=== PATIENT | female | born 1985 | race Caucasian/White ===

== ENCOUNTER 2020-07-18 13:22 | Inpatient (IN) | payer OTHER, SELFPAY ==
[2020-06-15 15:12] VITALS: BMI 32.1
[2020-07-18] VITALS (69 sets, daily range): BP systolic 104–146; BP diastolic 68–104; PULSE 64–93; TEMP 36.6; O2SAT 96–100
--- NOTE | 2020-07-18 13:43 | LDADM ---
This patient, Nona Stern, was admitted to Labor/Delivery/Recovery 103 on 07/18/20 at 13:22. Plans for labor, pain management and were discussed with patient. Patient/family oriented to hospital policies and general routines including ID bracelet, bed and alarms, visiting hours, pain management, procedures, bathroom and other care routines, personal items, smoking policy, room service/diet and guest tray routines, infant security routines, and visiting hours. Patient/Family are encouraged to report perceived risks to care and to ask questions if they do not understand what they are told or what they should do. See OBIX for further documentation.
[2020-07-18] MEDS: LACTATED RINGERS 1,000 ML 125 ML IV CONT ×2 (13:51→19:16)
[2020-07-18] MEDS: OXYTOCIN 30 UNITS/NS 500 ML 30 UNITS/500 ML BAG IV CONT (13:51)
[2020-07-18 14:01] LABS: Basophils Percent Auto 0.1 % (0.2-1.2); Eosinophils Absolute Auto 0.4 K/mm3 (0-0.3); Eosinophils Percent Auto 3.5 % (0-4.4); Hematocrit 36.7 % (37.0-47.0); Hemoglobin 12.5 g/dL (12.0-15.0); Immature Granulocyte Absolute 0.09 K/mm3 (0.00-0.031); Immature Granulocyte Percent A 0.8 % (0-0.5); Lymphocytes Absolute Auto 1.49 K/mm3 (0.9-3.2); Lymphocytes Percent Auto 12.9 % (18.3-44.2); Mean Corpuscular HGB Conc 34.1 g/dl (32-36); Mean Corpuscular Hemoglobin 30.6 pg (26-34); Mean Platelet Volume 9.6 fl (7.4-10.4); Monocytes Absolute Auto 1.1 K/mm3 (0.1-0.6); Monocytes Percent Auto 9.6 % (2.6-8.5); Neutrophils Absolute Auto 8.5 K/mm3 (1.3-6.7); Neutrophils Percent Auto 73.1 % (45.5-73.1); Platelet Count Result 251 k/mm3 (150-375); Red Blood Count 4.08 M/mm3 (4.2-5.4); Red Cell Distribution Width 13.2 % (11.5-14.5); White Blood Count 11.6 K/mm3 (4.5-10.0)
[2020-07-18 16:31] LABS: Barbiturate Screen Urine Negative (Negative); Benzodiazepines Screen Urine Negative (Negative)
[2020-07-18 16:32] LABS: Amphetamine Screen Urine Negative (Negative); Cannabinoid Screen Urine Positive (Negative); Cocaine Screen Urine Negative (Negative); Methadone Screen Urine Negative (Negative); Opiate Screen Urine Negative (Negative); Phencyclidine Screen Urine Negative (Negative)
--- NOTE | 2020-07-18 18:33 | PM.IMHP ---
H&P: HPI History of Present Illness Date/Time: 07/18/20 18:33 Chief complaint: Induction of Labor Narrative: Nona Stern is a 34 year old female [facility] Family History Family History (Updated 06/15/20 @ 15:23 by Lidia Cho, RN) Grandparent Asthma Mother Asthma Colon cancer Social History Social History Smoking status: Former smoker Substance use: never Gender identity (if verbalized by the patient): Female Spiritual care concerns: No Meds Home Medications and Allergies Home Medications Medication Instructions Recorded Confirmed Type PNV cmb#95-ferrous fumarate-FA 1 tablet PO DAILY 06/15/20 07/18/20 History [] albuterol sulfate 2 puff INHALATION PRN PRN 06/15/20 07/18/20 History Allergies Allergy/AdvReac Type Severity Reaction Status Date / Time Penicillins Allergy Intermediate UNKNOWN Verified 02/16/18 22:55 Vital Signs Vital Signs - 24 hr 07/18/20 13:45 07/18/20 14:01 07/18/20 14:15 Temperature Pulse Rate 81 76 86 Blood Pressure 133/89 116/77 123/79 07/18/20 14:30 07/18/20 14:45 07/18/20 15:00 Temperature 36.6 C Pulse Rate 73 73 78 Blood Pressure 128/81 132/84 124/84 07/18/20 15:15 07/18/20 15:30 07/18/20 16:00 Temperature Pulse Rate 74 71 75 Blood Pressure 128/78 127/84 132/82 07/18/20 16:15 07/18/20 16:30 07/18/20 16:45 Temperature Pulse Rate 72 71 72 Blood Pressure 128/81 131/88 133/81 07/18/20 17:00 07/18/20 17:15 07/18/20 17:30 Temperature Pulse Rate 75 78 76 Blood Pressure 134/90 129/81 131/76 07/18/20 17:45 07/18/20 18:22 07/18/20 18:30 Temperature Pulse Rate 75 78 81 Blood Pressure 123/76 127/74 142/96 H H&P: Results Labs Labs: Short CBC 07/18/20 Range/Units 13:46 WBC 11.6 H (4.5-10.0) K/mm3 Hgb 12.5 (12.0-15.0) g/dL Hct 36.7 L (37.0-47.0) % Plt Count 251 (150-375) k/mm3 Assessment and Plan Assessment and plan (1) Post-term , 40-42 weeks of gestation: Code(s): O48.0 - Post-term Status: Acute (2) Decreased movement: Code(s): O36.8190 - Decreased movements, unspecified trimester, not applicable or unspecified Status: Acute
--- NOTE | 2020-07-18 18:34 | P.HP_ITS ---
Obstetrics - Admit Note Admission Note: record reviewed. No pertinent additions to the history and/or any subsequent changes in the physical findings that are not consistent with the expected course of the were found. pt in office today with decreased movement at term gestation, plan induction of labor, sve 3/-2 , arom moderate amount of clear odorless fluid Additions to the history and/or subsequent changes in the physical findings follow. None.
--- NOTE | 2020-07-18 18:53 | WPDANESEPPF ---
Anes - Initial Pre Proc Eval Procedure: labor epidural Date/Time: 07/18/20 18:53 Surgeon: Luz Grace MD Pre Op Diagnosis: labor pain Pre Op Diagnosis: Induction of Labor Patient Data Age: 34 Gender: F Height: 1.63 m Weight: 85 kg Last Vital Signs Temp 36.6 C 07/18/20 15:00 Pulse 74 07/18/20 18:50 BP 141/90 H 07/18/20 18:50 Pulse Ox 99 07/18/20 18:49 Allergies Allergy/AdvReac Type Severity Reaction Status Date / Time Penicillins Allergy Intermediate UNKNOWN Verified 02/16/18 22:55 Home Medications Medication Instructions Recorded Confirmed Type PNV cmb#95-ferrous fumarate-FA 1 tablet PO DAILY 06/15/20 07/18/20 History [] albuterol sulfate 2 puff INHALATION PRN PRN 06/15/20 07/18/20 History Laboratory Tests 07/18/20 07/18/20 07/18/20 13:46 13:46 13:46 WBC 11.6 K/mm3 H K/mm3 (4.5-10.0) RBC 4.08 M/mm3 L M/mm3 (4.2-5.4) Hgb 12.5 g/dL g/dL (12.0-15.0) Hct 36.7 % L % (37.0-47.0) MCV 90.0 fl fl (80-100) MCH 30.6 pg pg (26-34) MCHC 34.1 g/dl g/dl (32-36) RDW 13.2 % % (11.5-14.5) Plt Count 251 k/mm3 k/mm3 (150-375) MPV 9.6 fl fl (7.4-10.4) Immature Gran % (Auto) 0.8 % H % (0-0.5) Neut % (Auto) 73.1 % % (45.5-73.1) Lymph % (Auto) 12.9 % L % (18.3-44.2) [place] % (Auto) 9.6 % H % (2.6-8.5) Eos % (Auto) 3.5 % % (0-4.4) Baso % (Auto) 0.1 % L % (0.2-1.2) Lymph # (Auto) 1.49 K/mm3 K/mm3 (0.9-3.2) [place] # (Auto) 1.1 K/mm3 H K/mm3 (0.1-0.6) Eos # (Auto) 0.4 K/mm3 H K/mm3 (0-0.3) Baso # (Auto) 0.0 K/mm3 K/mm3 (0.0-0.1) Abs Immat Gran (auto) 0.09 K/mm3 H K/mm3 (0.00-0.031) Absolute Neuts (auto) 8.5 K/mm3 H K/mm3 (1.3-6.7) Absolute Nucleated RBC 0.0 K/mm3 K/mm3 (0.0-0.012) Nucleated RBC % 0.0 % % (0.0-0.2) Urine Opiates Screen Urine Methadone Screen Ur Barbiturates Screen Ur Phencyclidine Scrn Ur Amphetamine Screen U Benzodiazepines Scrn Urine Cocaine Screen U Cannabinoids Screen RPR Pending Blood Type O Positive Antibody Screen Negative 07/18/20 15:59 WBC RBC Hgb Hct MCV MCH MCHC RDW Plt Count MPV Immature Gran % (Auto) Neut % (Auto) Lymph % (Auto) [place] % (Auto) Eos % (Auto) Baso % (Auto) Lymph # (Auto) [place] # (Auto) Eos # (Auto) Baso # (Auto) Abs Immat Gran (auto) Absolute Neuts (auto) Absolute Nucleated RBC Nucleated RBC % Urine Opiates Screen Negative (Negative) Urine Methadone Screen Negative (Negative) Ur Barbiturates Screen Negative (Negative) Ur Phencyclidine Scrn Negative (Negative) Ur Amphetamine Screen Negative (Negative) U Benzodiazepines Scrn Negative (Negative) Urine Cocaine Screen Negative (Negative) U Cannabinoids Screen Positive A (Negative) RPR Blood Type Antibody Screen Patient hx anesthesia problems: none Family hx anesthesia problems: none [facility] Past Medical History Medical History (Updated 07/18/20 @ 18:53 by Jenaro Da Silva DO) Asthma Family History Family History (Updated 06/15/20 @ 15:23 by Lidia Cho RN) Grandparent Asthma Mother Asthma Colon cancer Social History Social History Smoking status: Former smoker Substance use: never Gender identity (if verbalized by the patient): Female Spiritual care concerns: No Anes - Eval Final PreProcedure Day of Procedure 07/18/20 18:53 Patient weight: obese ASA classification: III Anesthesia type and monitoring: regional epidur
--- NOTE | 2020-07-18 21:34 | PM.OBPRVD ---
OB - Delivery Note Procedure Delivery date: 07/18/20 Procedure: Vaginal delivery. Intrapartal events: Extended Bradycardia Induction method: AROM and per pitocin protocol Delivery monitor: external FHT and external uterine Route of delivery: Episiotomy description: None Laceration Description: None Specimen: No Estimated blood loss (mL): 50 Anesthesia type: Epidural Disposition: other () [place] Baby Date of : 07/18/20 Time of : 21:21 Weeks of gestation at delivery: 40 Infant gender: Male Weight (pounds): 7 Weight (ounces): 11 presentation: vertex position: Right Occiput Anterior Placenta delivery description: Spontaneous cord vessel description: 3 Vessels, Nuchal Cord (x1), Reduced, Clamped/Cut, Around Body x2 and Delayed Cord Clamping score one minute: 9 score five minutes: 9 Narrative: Mom and baby skin to skin and in stable condition.
[2020-07-18] MEDS: OXYTOCIN 30 UNITS/NS 500 ML 30 UNITS/500 ML BAG 125 UNITS IV CONT (21:54)
[2020-07-19 00:42] VITALS: BP 123/73; PULSE 79
--- NOTE | 2020-07-19 01:28 | OBPPTRN ---
Patient transferred to post room #290 via wheelchair with in crib. Support person present. Oriented to unit, room, information board, rooming in, admission packet and security measures. Patient verbalizes understanding.
[2020-07-19 01:40] VITALS: BP 131/80; PULSE 76; RESP 16; TEMP 37.1
[2020-07-19 06:01] LABS: Hematocrit 32.9 % (37.0-47.0); Hemoglobin 11.2 g/dL (12.0-15.0)
[2020-07-19 06:40] VITALS: BP 121/63; PULSE 59; RESP 18; TEMP 37
--- NOTE | 2020-07-19 07:58 | P.PNOB_ITS ---
OB - PN: Subj Subjective Date/time seen: 07/19/20 07:58 Patient comments: no complaints baby status: doing well OB - PN: Obj Data Labs CBC & Chem 7: 07/19/20 04:38 Labs: Laboratory Results - last 24 hr 07/18/20 07/18/20 07/18/20 13:46 13:46 15:59 WBC 11.6 H RBC 4.08 L Hgb 12.5 Hct 36.7 L MCV 90.0 MCH 30.6 MCHC 34.1 RDW 13.2 Plt Count 251 MPV 9.6 Immature Gran % (Auto) 0.8 H Neut % (Auto) 73.1 Lymph % (Auto) 12.9 L [place] % (Auto) 9.6 H Eos % (Auto) 3.5 Baso % (Auto) 0.1 L Lymph # (Auto) 1.49 [place] # (Auto) 1.1 H Eos # (Auto) 0.4 H Baso # (Auto) 0.0 Abs Immat Gran (auto) 0.09 H Absolute Neuts (auto) 8.5 H Absolute Nucleated RBC 0.0 Nucleated RBC % 0.0 Urine Opiates Screen Negative Urine Methadone Screen Negative Ur Barbiturates Screen Negative Ur Phencyclidine Scrn Negative Ur Amphetamine Screen Negative U Benzodiazepines Scrn Negative Urine Cocaine Screen Negative U Cannabinoids Screen Positive A Blood Type O Positive Antibody Screen Negative 07/19/20 04:38 WBC RBC Hgb 11.2 L Hct 32.9 L MCV MCH MCHC RDW Plt Count MPV Immature Gran % (Auto) Neut % (Auto) Lymph % (Auto) [place] % (Auto) Eos % (Auto) Baso % (Auto) Lymph # (Auto) [place] # (Auto) Eos # (Auto) Baso # (Auto) Abs Immat Gran (auto) Absolute Neuts (auto) Absolute Nucleated RBC Nucleated RBC % Urine Opiates Screen Urine Methadone Screen Ur Barbiturates Screen Ur Phencyclidine Scrn Ur Amphetamine Screen U Benzodiazepines Scrn Urine Cocaine Screen U Cannabinoids Screen Blood Type Antibody Screen OB - PN A/P Plan day: 1 Plan: routine care Time Spent With Patient Time: Total time spent is greater than 50% in coordination of care (as documented) at patient's floor/unit and/or counseling patient: Time with patient: less than 15 minutes Review of Systems Review of Systems: All systems reviewed & are unremarkable except as noted in HPI and below Exam Narrative: Exam Narrative: Fundus firm and vaginal flow controlled. No lower ext redness, warmth, or edema. Negative homans. Denies h/a, v/d or e/p. Reflexes normal. Const: General: comfortable Chest: Breast/axilla inspection: normal inspection of the breasts Resp: Effort & Inspection: normal respiratory effort Cardio: Rate: regular rate GI: GI Palp: Yes Soft to palpation Psych: Appearance: grossly normal Affect: normal affect Attitude: cooperative Thought content: Yes Normal thought content present Judgement: Good judgement present (Psych)
[2020-07-19 08:52] LABS: Rapid Plasma Reagin Non-Reactive (NonReactive)
[2020-07-19] MEDS: MULTIVIT/MIN/PREN/FOL AC/IRON TABLET 1 TAB PO (09:02)
[2020-07-19] MEDS: IBUPROFEN 600 MG TABLET PO (09:02)
[2020-07-19] MEDS: TETANUS,DIPHTHERIA,AC PERTUSSIS ADULT (0.5 ML) BOOSTRIX IM (10:40)
[2020-07-19 22:00] VITALS: BP 121/72; PULSE 77; RESP 16; TEMP 36.7; O2SAT 100
[2020-07-20 07:05] VITALS: BP 134/90; PULSE 79; RESP 16; TEMP 36.9
[2020-07-20] MEDS: IBUPROFEN 600 MG TABLET PO (07:36)
[2020-07-20] MEDS: MULTIVIT/MIN/PREN/FOL AC/IRON TABLET 1 TAB PO (07:36)
[2020-07-20] MEDS: DOCUSATE SODIUM 100 MG CAPSULE PO (07:36)
[2020-07-20] MEDS: LANOLIN (LANSINOH) 7.5 GM CREAM 1 APPLIC TOPICAL (07:38)
--- NOTE | 2020-07-20 08:10 | PM.OBPNVD ---
OB - PN: Subj Subjective Date/time seen: 07/20/20 08:10 Patient comments: no complaints baby status: doing well OB - PN: Obj Data Labs CBC & Chem 7: 07/19/20 04:38 Labs: Laboratory Results - last 24 hr 07/18/20 13:46 RPR Non-reactive OB - PN A/P Plan day: 2 Plan: routine care and discharge home (F/U in 1 week for bp check) Time Spent With Patient Time: Total time spent is greater than 50% in coordination of care (as documented) at patient's floor/unit and/or counseling patient: PIH precautions discussed in detail. Time with patient: less than 15 minutes Review of Systems Review of Systems: All systems reviewed & are unremarkable except as noted in HPI and below Exam Narrative: Exam Narrative: Fundus firm and vaginal flow controlled. No lower ext redness, warmth, or edema. Negative homans. Denies h/a, v/d or e/p. Reflexes normal. Const: General: comfortable Chest: Breast/axilla inspection: normal inspection of the breasts Resp: Effort & Inspection: normal respiratory effort Cardio: Rate: regular rate GI: GI Palp: Yes Soft to palpation Psych: Appearance: grossly normal Affect: normal affect Attitude: cooperative Thought content: Yes Normal thought content present Judgement: Good judgement present (Psych)
--- NOTE | 2020-07-20 08:12 | P.DS_ITS ---
DS: Admitting Diagnosis Admitting Diagnosis Admitting Diagnosis: Induction of Labor DS: Discharge Diagnosis Discharge Diagnosis (1) Vaginal delivery: Code(s): O80 - Encounter for full-term uncomplicated delivery Status: Acute OB - DS: Summary OB Procedures : None OB Procedures Intrapartum: Spontaneous Vag Delivery OB Procedures: : None Time Spent with Patient Time attestation: Total time spent providing and/or coordinating discharge services: Time spent: Less than 30 minutes DS: Data Data Completed and Pending Labs on day of discharge: Labs from last 24 hours 07/18/20 13:46 RPR Non-reactive Discharge Plan Discharge Attending physician on discharge: Mirlande Prabhakar Discharging Clinician: Betzaida Arreola Patient Disposition: Home, Self-Care Activity: pelvic rest Diet: as tolerated Patient Instructions: Antibiotic Form Stand Alone Forms: General Discharge Information Follow-up/Referrals: Mirlande Prabhakar, CNM [Certified Nurse Controlled Area Checker] - Discharge Medications: Continued albuterol sulfate 90 mcg/actuation Hfa Aerosol Inhaler 2 puff INHALATION PRN PRN (Reason: Shortness Of Breath) RF: 0 PNV cmb#95-ferrous fumarate-FA [] 28 mg iron- 800 mcg Tablet 1 tablet PO DAILY RF: 0 Date of admission: 07/18/20 13:22 Primary Care Provider: PHYSICIAN,SUPERVISOR LABOR GANG Admitting Provider: Luz Grace Attending physician on admission: Luz Grace Condition: Stable
[2020-07-21 11:27] VITALS: BP 151/96; PULSE 96; RESP 20; TEMP 36.9; O2SAT 99
== END 2020-07-20 13:50 | disposition home or self-care (01) | DRG 807 ==
LOC: ANHLDR 13:26 → ANHOB2 07-19 01:45
PROVIDERS: Advanced Practice Midwife; Admitting Provider Obstetrics & Gynecology; Visit Provider Obstetrics & Gynecology
DX: O48.0 Post-term pregnancy (principal); Z37.0 Single live birth; Z3A.40 40 weeks gestation of pregnancy; O36.8330 Maternal care for abnormalities of the fetal heart rate or rhythm, third trimester, not applicable or unspecified; O69.82X0 Labor and delivery complicated by other cord entanglement, without compression, not applicable or unspecified; O99.52 Diseases of the respiratory system complicating childbirth; J45.909 Unspecified asthma, uncomplicated; O99.214 Obesity complicating childbirth; E66.9 Obesity, unspecified
CPT/HCPCS: 36415; 80307; 85014; 85018; 85025; 86592; 86850; 86900; 86901; 90715; A9270; J2590; J2795; J7120

== ENCOUNTER → 2020-10-18 11:12 | Outpatient (CLI) | payer OTHER, MEDICAID, SELFPAY ==
--- NOTE | ~2020-10-18 | XR_ITS ---
EXAMINATION: XR knee RT min 4V DATE: 10/18/2020 11:50 INDICATION: Back pain. TECHNIQUE: 4 views of right knee were obtained. COMPARISON: None. FINDINGS: Bone alignment is normal. No fracture. There is mild tricompartmental osteoarthritis charac terized by tiny marginal osteophytes. No knee joint effusion. IMPRESSION: 1. Mild right knee osteoarthritis. Reviewed, dictated and finalized at location A. CAL COLLECTOR
--- NOTE | ~2020-10-18 | XR_ITS ---
XR lumbar spine 2-3V DATE: 10/18/2020 11:50 INDICATION: Back pain. No injury. TECHNIQUE: AP, lateral, coned lateral lumbosacral views COMPARISON: None FINDINGS: Minimal dextroscoliosis of the lumbar spine. No fracture or bone destruction. The lumbar pedicles are intact. Lumbar and lumbosacral interspaces are well preserved. Normal sacroiliac joints. IMPRESSION: Minimal dextroscoliosis; otherwise negative Reviewed, dictated and finalized at location A. SHOVEL OPERATOR
--- NOTE | ~2020-10-18 | XR_ITS ---
EXAMINATION: XR knee LT min 4V DATE: 10/18/2020 11:50 INDICATION: Back pain. TECHNIQUE: 4 views of left knee were obtained. COMPARISON: None. FINDINGS: Bone alignment is normal. No fracture. There is mild tricompartmental osteoarthritis charac terized by tiny marginal osteophytes. No knee joint effusion. IMPRESSION: 1. Mild left knee osteoarthritis. Reviewed, dictated and finalized at location A. T FARMER
== END ==
PROVIDERS: PCP Family Medicine; Visit Provider Physician Assistant Medical
DX: M54.5 Low back pain (principal); M25.562 Pain in left knee; M25.561 Pain in right knee; M41.86 Other forms of scoliosis, lumbar region; M17.0 Bilateral primary osteoarthritis of knee
CPT/HCPCS: 72100; 73564

== ENCOUNTER → 2020-10-27 07:38 | Outpatient (CLI) | payer OTHER, MEDICAID, SELFPAY ==
--- NOTE | ~2020-10-27 | MR_ITS ---
EXAMINATION: MR lumbar spine wo con DATE: 10/27/2020 08:24 INDICATION: Low back pain. TECHNIQUE: Magnetic resonance imaging (MRI) of the lumbar spine was performed without intravenous con trast. Sequences included sagittal T2-weighted FSE, sagittal T2-weighted FS FSE, sagittal T1-weighted FSE, and axial T2-weighted FSE. COMPARISON: Lumbar spine radiographs 10/18/2020 FINDINGS: There is 5 degrees dextrocurvature of lumbar spine. Vertebral body heights and intervertebr al disc heights are normal. The distal spinal cord signal intensity is normal. The conus medullaris i s at T12-L1. The following disc levels are specifically discussed: L1-L2: The disc does not extend beyond the endplate margin. There is mild bilateral facet joint osteo arthritis. There is no neural foraminal stenosis. There is no central canal stenosis. L2-L3: The disc does not extend beyond the endplate margin. There is mild right facet joint osteoarth ritis. There is no neural foraminal stenosis. There is no central canal stenosis. L3-L4: The disc does not extend beyond the endplate margin. There is mild right facet joint osteoarth ritis. There is no neural foraminal stenosis. There is no central canal stenosis. L4-L5: The disc does not extend beyond the endplate margin. There is mild bilateral facet joint osteo arthritis. There is no neural foraminal stenosis. There is no central canal stenosis. L5-S1: There is a central protrusion. There is mild bilateral facet joint osteoarthritis. There is no neural foraminal stenosis. There is no central canal stenosis. IMPRESSION: 1. Mild lumbar spondylosis. Reviewed, dictated and finalized at location A. MENTAL BRONZE WORKER IMPRESSION: 1. Mild lumbar spondylosis.
== END ==
PROVIDERS: PCP Family Medicine; Visit Provider Physician Assistant Medical
DX: M47.896 Other spondylosis, lumbar region (principal)
CPT/HCPCS: 72148

== ENCOUNTER 2023-01-14 09:23 | Outpatient (CLI) | payer OTHER, MEDICAID, SELFPAY ==
[2023-01-14 09:35] LABS: Kit Draw Collected
== END 2023-01-14 09:24 | disposition home or self-care (01) ==
LOC: ANHGOSHLAB 09:25
PROVIDERS: PCP Family Medicine; Visit Provider Physician Assistant
DX: R42 Dizziness and giddiness (principal); R55 Syncope and collapse
CPT/HCPCS: 36415

== ENCOUNTER 2024-10-05 06:27 | Emergency (ER) | payer BC, SELFPAY ==
[2024-10-05] VITALS (7 sets, daily range): BP systolic 121–137; BP diastolic 75–84; PULSE 99–115; RESP 14–24; TEMP 37.4; O2SAT 96–97
--- NOTE | ~2024-10-05 | XR_ITS ---
Portable chest x-ray Comparison: 03/04/2016 Clinical History: Shortness of breath Findings: Lungs are clear, without focal consolidation or pleural effusion. Cardiomediastinal silho uette is stable. Bones and soft tissues are unremarkable. Impression: Normal chest. Reviewed, dictated and finalized at [facility]. [facility] [employer] Impression: Normal chest.
--- NOTE | 2024-10-05 06:34 | ECG_ITS ---
Test Date: 2024-10-05 06:31:58 Measurements Intervals Gary Rate: 111 P: 61 ME: 140 QRS: 35 QRSD: 89 T: -9 QT: 291 QTc: 396 Interpretive Statements SINUS TACHYCARDIA NONSPECIFIC ST & T-WAVE ABNORMALITY ABNORMAL RHYTHM ECG No previous ECG available for comparison Electronically Signed On 10-05-2024 10:48:15 SHIFT SUPERVISOR MELTING by Miguel Cox M.D.
--- NOTE | 2024-10-05 06:35 | ED.GENADULT ---
HPI - General Adult General Chief complaint: Shortness of Breath/Dyspnea <Holly Dobbs MD - Last Filed: 10/05/24 06:37> Stated complaint: dyspnea <Holly Dobbs MD - Last Filed: 10/05/24 06:37> Time Seen by Provider: 10/05/24 06:35 <Holly Dobbs MD - Last Filed: 10/05/24 06:37> History of Present Illness HPI narrative: Patient is a 39-year-old female who presents to the emergency department this morning complaining of a shortness of breath. Patient states that she does have a history of asthma but has not needed to use her inhaler at home as her asthma has been well controlled. She states that she started to cough yesterday and have some body aches and feels as though this may have precipitated her worsening shortness of breath. Patient states that this morning she felt like she could not breathe and decided to call 911 and come to the emergency department. Patient states that on route to the emergency department EMS did administer DuoNeb breathing treatment which helped her symptoms a lot. She denies any fevers or chills at home. No additional symptoms or concerns at this time. <Holly Dobbs MD - Last Filed: 10/05/24 06:37> Related Data Home medications: Home Medications ?Medication ?Instructions ?Recorded ?Confirmed ?Last Taken ?Type albuterol sulfate 90 mcg/actuation 2 puff inhalation PRN PRN 06/15/20 01/14/23 1 Day Ago History aerosol inhaler Shortness Of Breath ~07/17/20 cetirizine 10 mg tablet (Zyrtec) 10 mg PO DAILY PRN 10/18/20 01/14/23 Unknown History diphenhydramine HCl 25 mg capsule 25 mg PO TID PRN 10/18/20 01/14/23 Unknown History (Benadryl) fluticasone propionate 50 1 spray intranasal DAILY 10/18/20 01/14/23 Unknown History mcg/actuation nasal spray,suspension (Flonase Allergy Relief) <Holly Dobbs MD - Last Filed: 10/05/24 06:37> Allergies/adverse reactions: Allergies Allergy/AdvReac Type Severity Reaction Status Date / Time Penicillins Allergy Intermediate UNKNOWN Verified 01/14/23 08:39 <Holly Dobbs MD - Last Filed: 10/05/24 06:37> Review of Systems Review of Systems: All systems are reviewed and are negative unless stated otherwise in the HPI. <Holly Dobbs MD - Last Filed: 10/05/24 06:37> PMFSH Past Medical History Medical History: Medical History Vaginal delivery Asthma Post-term , 40-42 weeks of gestation <Holly Dobbs MD - Last Filed: 10/05/24 06:37> Surgical History Surgical History: Surgical History History of appendectomy <Holly Dobbs MD - Last Filed: 10/05/24 06:37> Family History Family History: Family History Grandparent Asthma Cerebrovascular accident Mother Asthma Colon cancer Liver cancer Father Alcoholism Sibling Alcoholism <Holly Dobbs MD - Last Filed: 10/05/24 06:37> Social History Social History: Social History Social History: Caffeine-lots Years smoked: 10 Smoking status: Current every day smoker Alcohol intake: current Alcohol use details: Rarely Substance use: current Substance use type: marijuana Lack of Transportation: No Lack of Food: Never True Current Housing: I Have Housing Concerned About Future Housing: No Difficulty Paying Gas/Electric Bills: No Difficulty Paying for Meds: YES Currently Unemployed: No Education: High School Diploma/GED Difficulty w/ Childcare or Family Care: No Living arrangements: with family Occupation/Education: occupation Gender identity (if verbalized by the patient): Female Spiritual care concerns: No <Holly Dobbs MD - Last Filed: 10/05/24 06:37> Exam Narrative: General: Alert, awake, afebrile, anxious. HEENT: PERRL, no rhinorrhea, no post nasal drip, oropharynx clear. Neck: Trachea midline, no JVD, no lymphadenopathy. Cardiovascular: Regular rate and rhythm, no murmurs, rubs or gallops, no peripheral edema. Respiratory: Very faint expiratory wheezing, tachypnea, no respiratory distress. Abdomen: Soft, nontender, nondistended, no rebound, no guarding, no peritoneal signs. Musculoskeletal: No joint swelling or deformity, normal muscle tone. Skin: No rashes or petechia, no signs of infection. Psychiatric: Alert and oriented, normal behavior and judgment for situation. Neurological: Alert and oriented to person, place, and time. Follows all commands. No focal deficits, speech is clear and fluent. <Holly Dobbs MD - Last Filed: 10/05/24 06:37> Course Reevaluation(s) Reevaluation #1: 39-year-old female present to the emergency department for evaluation for flu-like symptoms. Patient care was signed out to me pending improvement. Patient does feel significantly improved. Patient did test positive for influenza A. On re-evaluation patient states that she feels that she is breathing much better. Patient had no wheeze reexamination. Patient is afebrile with no leukocytosis and hemoglobin of 13.2. No significant abnormalities on the patient's CMP, patient was negative for influenza B RSV and for COVID test positive for influenza a, patient states x-ray showed no acute cardiopulmonary abnormality. Patient we discharged home with instructions for Tylenol ibuprofen, albuterol, Tessalon Perles and Zofran. Patient was comfortable with plan for discharge and follow-up. <Niles Lobato MD - Last Filed: 10/05/24 17:42> Vital Signs Vital signs: Vital Signs Temperature 99.3 F 10/05/24 06:26 Pulse Rate 115 H 10/05/24 06:26 Respiratory Rate 24 H 10/05/24 06:26 Blood Pressure 137/84 10/05/24 06:26 Pulse Oximetry 96 10/05/24 06:26 Oxygen Delivery Room Air 10/05/24 06:26 Temperature 99.3 F 10/05/24 08:15 Pulse Rate 99 10/05/24 08:15 Respiratory Rate 16 10/05/24 08:15 Blood Pressure 121/75 10/05/24 08:15 Pulse Oximetry 97 10/05/24 08:15 Oxygen Delivery Room Air 10/05/24 07:29 <Holly Dobbs MD - Last Filed: 10/05/24 06:37> Vital Signs Temperature 99.3 F 10/05/24 06:26 Pulse Rate 115 H 10/05/24 06:26 Respiratory Rate 24 H 10/05/24 06:26 Blood Pressure 137/84 10/05/24 06:26 Pulse Oximetry 96 10/05/24 06:26 Oxygen Delivery Room Air 10/05/24 06:26 Temperature 99.3 F 10/05/24 08:15 Pulse Rate 99 10/05/24 08:15 Respiratory Rate 16 10/05/24 08:15 Blood Pressure 121/75 10/05/24 08:15 Pulse Oximetry 97 10/05/24 08:15 Oxygen Delivery Room Air 10/05/24 07:29 <Niles Lobato MD - Last Filed: 10/05/24 17:42> Medical Decision Making MDM Narrative Medical decision making narrative: The patient was evaluated by myself in the emergency department. History is obtained from patient who is an independent historian and physical exam was performed. External medical records were reviewed at this time. IV was established and pertinent tests were ordered. Patient was administered a DuoNeb breathing treatment and 125 mg of IV Solu-Medrol. EKG was obtained which revealed sinus tachycardia rate of 111 beats per minute, no evidence of acute ischemia. EKG was independently interpreted by me and is currently pending official cardiology read. Patient was signed out to incoming AM ED physician pending remainder of the workup. <Holly Dobbs MD - Last Filed: 10/05/24 06:37> Vital Signs Vital Signs: Vital Signs Temperature 99.3 F 10/05/24 06:26 Pulse Rate 115 H 10/05/24 06:26 Respiratory Rate 24 H 10/05/24 06:26 Blood Pressure 137/84 10/05/24 06:26 Pulse Oximetry 96 10/05/24 06:26 Oxygen Delivery Room Air 10/05/24 06:26 Temperature 99.3 F 10/05/24 08:15 Pulse Rate 99 10/05/24 08:15 Respiratory Rate 16 10/05/24 08:15 Blood Pressure 121/75 10/05/24 08:15 Pulse Oximetry 97 10/05/24 08:15 Oxygen Delivery Room Air 10/05/24 07:29 <Holly Dobbs MD - Last Filed: 10/05/24 06:37> Vital Signs Temperature 99.3 F 10/05/24 06:26 Pulse Rate 115 H 10/05/24 06:26 Respiratory Rate 24 H 10/05/24 06:26 Blood Pressure 137/84 10/05/24 06:26 Pulse Oximetry 96 10/05/24 06:26 Oxygen Delivery Room Air 10/05/24 06:26 Temperature 99.3 F 10/05/24 08:15 Pulse Rate 99 10/05/24 08:15 Respiratory Rate 16 10/05/24 08:15 Blood Pressure 121/75 10/05/24 08:15 Pulse Oximetry 97 10/05/24 08:15 Oxygen Delivery Room Air 10/05/24 07:29 <Niles Lobato MD - Last Filed: 10/05/24 17:42> Lab Data Result diagrams: 10/05/24 06:36 10/05/24 07:34 <Holly Dobbs MD - Last Filed: 10/05/24 06:37> Labs: Lab Results 10/05/24 10/05/24 Range/Units 06:36 07:34 WBC 6.2 (4.5-10.0) K/mm3 RBC 4.48 (4.2-5.4) M/mm3 Hgb 13.2 (12.0-15.0) g/dL Hct 39.1 (37.0-47.0) % MCV 87.3 (80-100) fl MCH 29.5 (26-34) pg MCHC 33.8 (32-36) g/dl RDW 13.3 (11.5-14.5) % Plt Count 211 (150-375) k/mm3 MPV 9.9 (7.4-10.4) fl Immature Gran % (Auto) 0.3 (0-0.5) % Neut % (Auto) 81.3 H (45.5-73.1) % Lymph % (Auto) 6.1 L (18.3-44.2) % Granite % (Auto) 11.3 H (2.6-8.5) % Eos % (Auto) 0.8 (0-4.4) % Baso % (Auto) 0.2 (0.2-1.2) % Lymph # (Auto) 0.38 L (0.9-3.2) K/mm3 Granite # (Auto) 0.7 H (0.1-0.6) K/mm3 Eos # (Auto) 0.1 (0-0.3) K/mm3 Baso # (Auto) 0.0 (0.0-0.1) K/mm3 Abs Immat Gran (auto) 0.02 (0.00-0.031) K/mm3 Absolute Neuts (auto) 5.1 (1.3-6.7) K/mm3 Absolute Nucleated RBC 0.000 (0.0-0.012) K/mm3 Nucleated RBC % 0.0 (0.0-0.2) % Sodium 135 L (137-145) mmol/L Potassium 3.4 (3.4-5.0) mmol/L Chloride 104 (98-107) mmol/L Carbon Dioxide 21 L (22-30) mmol/L Anion Gap 10 (4-12) mmol/L BUN 7 (7-17) mg/dL Creatinine 0.51 L (0.7-1.0) mg/dL Estim Creat Clear Calc 128 ml/min Estimated GFR > 60 (59 - ) Glucose 121 H (65-110) mg/dL Calcium 8.7 (8.4-10.2) mg/dL Magnesium 1.6 (1.6-2.3) mg/dL Total Bilirubin 0.4 (0.2-1.3) mg/dL AST 29 (14-36) U/L ALT 28 (6-35) U/L Alkaline Phosphatase 60 (38-126) U/L Total Protein 7.0 (6.3-8.2) g/dL Albumin 4.4 (3.5-5.1) g/dL Lipase 29 (23-300) U/L Influenza A (RT-PCR) Positive A (Negative) Influenza B (RT-PCR) Negative (Negative) RSV (RT-PCR) Negative (Negative) SARS-CoV-2 RNA (RT-PCR) Negative (Negative) <Holly Dobbs MD - Last Filed: 10/05/24 06:37> Lab Results 10/05/24 10/05/24 Range/Units 06:36 07:34 WBC 6.2 (4.5-10.0) K/mm3 RBC 4.48 (4.2-5.4) M/mm3 Hgb 13.2 (12.0-15.0) g/dL Hct 39.1 (37.0-47.0) % MCV 87.3 (80-100) fl MCH 29.5 (26-34) pg MCHC 33.8 (32-36) g/dl RDW 13.3 (11.5-14.5) % Plt Count 211 (150-375) k/mm3 MPV 9.9 (7.4-10.4) fl Immature Gran % (Auto) 0.3 (0-0.5) % Neut % (Auto) 81.3 H (45.5-73.1) % Lymph % (Auto) 6.1 L (18.3-44.2) % Granite % (Auto) 11.3 H (2.6-8.5) % Eos % (Auto) 0.8 (0-4.4) % Baso % (Auto) 0.2 (0.2-1.2) % Lymph # (Auto) 0.38 L (0.9-3.2) K/mm3 Granite # (Auto) 0.7 H (0.1-0.6) K/mm3 Eos # (Auto) 0.1 (0-0.3) K/mm3 Baso # (Auto) 0.0 (0.0-0.1) K/mm3 Abs Immat Gran (auto) 0.02 (0.00-0.031) K/mm3 Absolute Neuts (auto) 5.1 (1.3-6.7) K/mm3 Absolute Nucleated RBC 0.000 (0.0-0.012) K/mm3 Nucleated RBC % 0.0 (0.0-0.2) % Sodium 135 L (137-145) mmol/L Potassium 3.4 (3.4-5.0) mmol/L Chloride 104 (98-107) mmol/L Carbon Dioxide 21 L (22-30) mmol/L Anion Gap 10 (4-12) mmol/L BUN 7 (7-17) mg/dL Creatinine 0.51 L (0.7-1.0) mg/dL Estim Creat Clear Calc 128 ml/min Estimated GFR > 60 (59 - ) Glucose 121 H (65-110) mg/dL Calcium 8.7 (8.4-10.2) mg/dL Magnesium 1.6 (1.6-2.3) mg/dL Total Bilirubin 0.4 (0.2-1.3) mg/dL AST 29 (14-36) U/L ALT 28 (6-35) U/L Alkaline Phosphatase 60 (38-126) U/L Total Protein 7.0 (6.3-8.2) g/dL Albumin 4.4 (3.5-5.1) g/dL Lipase 29 (23-300) U/L Influenza A (RT-PCR) Positive A (Negative) Influenza B (RT-PCR) Negative (Negative) RSV (RT-PCR) Negative (Negative) SARS-CoV-2 RNA (RT-PCR) Negative (Negative) <Niles Lobato MD - Last Filed: 10/05/24 17:42> Discharge Plan Discharge Clinical Impression: Influenza A <Holly Dobbs MD - Last Filed: 10/05/24 06:37> Patient Disposition: Home, Self-Care <Holly Dobbs MD - Last Filed: 10/05/24 06:37> Condition: Stable <Holly Dobbs MD - Last Filed: 10/05/24 06:37> Instructions: Antibiotic Form, Influenza (ED) <Holly Dobbs MD - Last Filed: 10/05/24 06:37> Additional Instructions: Tylenol and ibuprofen for fever and for body aches. Zofran as needed for nausea control. If your nauseous I do recommend sticking with a clear liquid diet for the next 1-3 days. Albuterol inhaler for cough and shortness of breath. Tessalon Perles for cough. Have close follow-up with your primary care physician. If you have any worsening symptoms then please call or return to the emergency department. <Holly Dobbs MD - Last Filed: 10/05/24 06:37> Patient Language: Ukrainian <Holly Dobbs MD - Last Filed: 10/05/24 06:37> Prescriptions: New benzonatate 100 mg capsule 100 mg PO TID PRN (Reason: cough) Qty: 14 0RF albuterol sulfate 90 mcg/actuation HFA aerosol inhaler 1 puff inhalation QID Qty: 6.7 0RF ondansetron 4 mg tablet,disintegrating 4 mg PO Q8H PRN (Reason: nausea and vomiting) Qty: 14 0RF No Action etonogestrel-ethinyl estradiol [NuvaRing] 0.12-0.015 mg/24 hr ring 1 vag ring vaginal ONCE Qty: 3 3RF triamcinolone acetonide 0.1 % cream 1 applic topical BID Qty: 80 0RF fluticasone propionate [Flonase Allergy Relief] 50 mcg/actuation spray,suspension 1 spray intranasal DAILY Rx Instructions: administer into each nostril diphenhydramine HCl [Benadryl] 25 mg capsule 25 mg PO TID PRN cetirizine [Zyrtec] 10 mg tablet 10 mg PO DAILY PRN diclofenac sodium [Arthritis Pain (diclofenac)] 1 % gel 4 g topical QID PRN (Reason: pain) Qty: 100 0RF Rx Instructions: apply 4g to each knee qid prn pain albuterol sulfate 90 mcg/actuation Hfa Aerosol Inhaler 2 puff INHALATION PRN PRN (Reason: Shortness Of Breath) cyclobenzaprine 10 mg tablet 10 mg PO TID PRN (Reason: muscle spasm) Qty: 30 2RF <Holly Dobbs MD - Last Filed: 10/05/24 06:37> Follow-up/Referrals: Buzz Aiken MD [Primary Care Provider] - <Holly Dobbs MD - Last Filed: 10/05/24 06:37>
[2024-10-05] MEDS: methylPREDNISolone SOD SUCC 125 MG VIAL IV PUSH (06:47)
[2024-10-05 06:48] LABS: Basophils Percent Auto 0.2 % (0.2-1.2); Eosinophils Absolute Auto 0.1 K/mm3 (0-0.3); Eosinophils Percent Auto 0.8 % (0-4.4); Hematocrit 39.1 % (37.0-47.0); Hemoglobin 13.2 g/dL (12.0-15.0); Immature Granulocyte Absolute 0.02 K/mm3 (0.00-0.031); Immature Granulocyte Percent A 0.3 % (0-0.5); Lymphocytes Absolute Auto 0.38 K/mm3 (0.9-3.2); Lymphocytes Percent Auto 6.1 % (18.3-44.2); Mean Corpuscular HGB Conc 33.8 g/dl (32-36); Mean Corpuscular Hemoglobin 29.5 pg (26-34); Mean Corpuscular Volume 87.3 fl (80-100); Mean Platelet Volume 9.9 fl (7.4-10.4); Monocytes Absolute Auto 0.7 K/mm3 (0.1-0.6); Monocytes Percent Auto 11.3 % (2.6-8.5); Neutrophils Absolute Auto 5.1 K/mm3 (1.3-6.7); Neutrophils Percent Auto 81.3 % (45.5-73.1); Platelet Count Result 211 k/mm3 (150-375); Red Blood Count 4.48 M/mm3 (4.2-5.4); Red Cell Distribution Width 13.3 % (11.5-14.5); White Blood Count 6.2 K/mm3 (4.5-10.0)
[2024-10-05] MEDS: IPRATROPIUM 0.5 MG/ALBUTEROL SULFATE 2.5 MG AMPUL.NEB 3 ML INHALATION (06:51)
[2024-10-05 07:27] LABS: Influenza A QL RT-PCR Positive (Negative); Influenza B QL RT-PCR Negative (Negative); RSV RNA, RT-PCR Negative (Negative); SARS-CoV-2 RNA PCR Negative (Negative)
[2024-10-05 07:57] LABS: Alanine Aminotransferase 28 U/L (6-35); Albumin Level 4.4 g/dL (3.5-5.1); Alkaline Phosphatase 60 U/L (38-126); Anion Gap 10 mmol/L (4-12); Aspartate Amino Transferase 29 U/L (14-36); Bilirubin,Total 0.4 mg/dL (0.2-1.3); Blood Urea Nitrogen 7 mg/dL (7-17); Calcium 8.7 mg/dL (8.4-10.2); Carbon Dioxide 21 mmol/L (22-30); Chloride 104 mmol/L (98-107); Estimated CRCL calculation 128 ml/min; Estimated Glomerular Filt Rate > 60; Glucose 121 mg/dL (65-110); Lipase 29 U/L (23-300); Magnesium 1.6 mg/dL (1.6-2.3); Potassium 3.4 mmol/L (3.4-5.0); Sodium 135 mmol/L (137-145)
== END 2024-10-05 08:17 | disposition home or self-care (01) ==
PROVIDERS: Emergency Provider Emergency Medicine; PCP Family Medicine
DX: J10.1 Influenza due to other identified influenza virus with other respiratory manifestations (principal); J45.909 Unspecified asthma, uncomplicated; F17.200 Nicotine dependence, unspecified, uncomplicated; Z20.822 Contact with and (suspected) exposure to COVID-19
CPT/HCPCS: 36415; 71045; 80053; 83690; 83735; 85025; 87637; 93005; 94640; 96374; 99284; J2919